=== PATIENT | female | born 1960 | race Caucasian/White ===

== ENCOUNTER 2018-07-17 10:39 | Emergency (ER) | payer MEDICAID ==
[2018-07-17 10:54] VITALS: TEMP 97.9
[2018-07-17] MEDS ORDERED: Iohexol 240 (50 ml) PO STA (11:32)
--- NOTE | 2018-07-17 11:37 | C.PDOC ---
History Of Present Illness 58 y/o obese female with sleep apnea, dm, htn comes to ed from pmd office with diffuse abdominal pain and persistent diarrhea for long time, since she was in [place]. no prior gi workup or colonoscopy. pt finished course of iv antibiotics (names unknown) about [address] Crawley. Recent abdominal us shows fatty liver per relative. no fever or chills. pt reports diarrhea goes away only with immodium. pt on metformin for dm. Time Seen by Provider: 07/17/18 11:10 Chief Complaint (Nursing): Abdominal Pain History Per: Patient, Family History/Exam Limitations: no limitations Onset/Duration Of Symptoms: Days, Intermittent Episodes Current Symptoms Are (Timing): Still Present Location Of Pain/Discomfort: Diffuse Radiation Of Pain To:: None Quality Of Discomfort: Unable To Describe Associated Symptoms: Nausea, Diarrhea. denies: Fever, Chills, Vomiting, Urinary Symptoms Exacerbating Factors: None Alleviating Factors: OTC Meds (immodium) Last Bowel Movement: Today Past Medical History Reviewed: Historical Data, Nursing Documentation, Vital Signs Vital Signs: Last Vital Signs Temp 97.9 F 07/17/18 10:51 Pulse 72 07/17/18 10:51 Resp 18 07/17/18 10:51 BP 152/89 H 07/17/18 10:51 Pulse Ox 100 07/17/18 10:51 - Medical History PMH: Arthritis, Diabetes, HTN, Migraine, Sleep Apnea Family History: States: Unknown Family Hx - Social History Hx Tobacco Use: No Hx Alcohol Use: No Hx Substance Use: No Review Of Systems Constitutional: Negative for: Fever, Chills ENT: Negative for: Mouth Pain, Throat Pain Cardiovascular: Negative for: Chest Pain Respiratory: Negative for: Cough Gastrointestinal: Positive for: Nausea, Abdominal Pain, Diarrhea. Negative for: Vomiting, Constipation Genitourinary: Negative for: Dysuria Skin: Negative for: Rash Neurological: Negative for: Weakness, Numbness Physical Exam - Physical Exam Appears: Non-toxic, No Acute Distress, Other (obese) Skin: Warm, Dry Head: Atraumatic, Normacephalic Oral Mucosa: Moist Neck: Supple Cardiovascular: Rhythm Regular Respiratory: No Decreased Breath Sounds, No Rales, No Rhonchi Gastrointestinal/Abdominal: Bowel Sounds, Soft, Tenderness (diffuse), No Distention, No Guarding, No Rebound Back: No CVA Tenderness Extremity: Normal ROM, No Pedal Edema Pulses: Left Dorsalis Pedis: Normal, Right Dorsalis Pedis: Normal Neurological/Psych: Oriented x3, Normal Speech, Normal Cognition ED Course And Treatment - Laboratory Results Result Diagrams: 07/17/18 11:52 07/17/18 11:52 O2 Sat by Pulse Oximetry: 100 Medical Decision Making Medical Decision Makin58 y/o obese female with diffuse ab pain, mostly epigastric and suprapubic, with diarrhea. sent for ab ct from pmd, labs and ct ordered. pepcid ordered. 1620 ct resulted, bladder wall thickening. no other acute findings. d/c with Macrobid. message left for Dr Crawley with lab and ct results. D.c home. Disposition Counseled Patient/Family Regarding: Studies Performed, Diagnosis, Need For Followup, Rx Given - Disposition Referrals: Narciso Crawley DO [Staff Provider] - Tone Howe MD [Staff Provider] - Disposition: HOME/ ROUTINE Disposition Time: 16:23 Condition: GOOD Additional Instructions: Please take antibiotics until completed. Drink increased fluids. Follow up with Dr Crawley and also with Dr Howe (gastroenterology). Tylenol or MOtrin for pain. Return to ER for any worse symptoms. Prescriptions: Nitrofurantoin Macrocrystals [Macrobid] 100 mg PO BID #14 cap Instructions: Acute Cystitis (DC) Forms: [facility] (Tristanian), General Discharge Instructions - Clinical Impression Clinical Impression: Cystitis
[2018-07-17] MEDS ORDERED: Iohexol 240 (50 ml) ONE (11:44)
[2018-07-17 12:05] LABS: BASO % 0.6 % (0.0-2.0); EOS # 0.4 K/uL (0.0-0.7); EOS % 4.4 % (0.0-4.0); HEMOGLOBIN 9.1 g/dL (11.0-16.0); LYMPH # 3.1 K/uL (1.0-4.3); LYMPH % 35.7 % (20.0-40.0); MEAN CELL VOLUME 68.4 fL (81.0-99.0); MEAN CORPUSCULAR HEMOGLOBIN 21.2 pg (27.0-31.0); MEAN CORPUSCULAR HGB CONC 30.9 g/dL (33.0-37.0); MEAN PLATELET VOLUME 8.3 fL (7.2-11.7); MONO # 0.7 K/uL (0.0-0.8); MONO % 7.9 % (0.0-10.0); NEUT # 4.5 K/uL (1.8-7.0); NEUT % 51.4 % (50.0-75.0); RBC 4.28 Mil/uL (3.80-5.20); SQUAMOUS EPITHIAL < 1 /hpf (0-5); URINE BACTERIA RARE (<OCC); URINE BILIRUBIN NEGATIVE (NEGATIVE); URINE BLOOD 1+ (NEGATIVE); URINE CLARITY Clear (Clear); URINE COLOR Straw (YELLOW); URINE GLUCOSE (UA) NORMAL (Normal); URINE LEUKOCYTE ESTERASE 3+ Leu/uL (Negative); URINE PROTEIN NEGATIVE (NEGATIVE); URINE UROBILINOGEN NORMAL mg/dL (0.2-1.0); WHITE BLOOD COUNT 8.7 K/uL (4.8-10.8)
[2018-07-17 12:19] LABS: ALB/GLOB RATIO 1.2 (1.0-2.1); ALBUMIN 3.8 g/dL (3.5-5.0); ALT/SGPT 18 U/L (9-52); AST/SGOT 18 U/L (14-36); BLOOD UREA NITROGEN 9 mg/dL (7-17); CALCIUM 8.7 mg/dl (8.6-10.4); GFR NON-AFRICAN AMERICAN > 60; LIPASE 80 U/L (23-300)
[2018-07-17] MEDS ORDERED: Iodixanol 320 MG/ML 100 ML BOTTLE IV ONE (13:33)
--- NOTE | 2018-07-17 16:13 | CT ---
Date of service: 07/17/2018 PROCEDURE: CT Abdomen and Pelvis.. HISTORY: Abdominal pain COMPARISON: None. TECHNIQUE: Contiguous axial images of the abdomen and pelvis performed following oral and intravenous injection of approximately 100 cc Omnipaque Visipaque 320 contrast material. The reformats generated. Radiation dose: Total exam DLP = 1202.24 mGy-cm. This CT exam was performed using one or more of the following dose reduction techniques: Automated exposure control, adjustment of the mA and/or kV according to patient size, and/or use of iterative reconstruction technique. FINDINGS: LOWER THORAX: Heart size upper limits of normal. No significant pericardial effusion. There is a small blebs seen left medial lung base. Minor passive/dependent type atelectasis both posterior lower lung wallace. LIVER: Liver is upper limits of normal in size measuring nearly 19 cm in CC dimension. No obvious hepatic mass or collection. Portal and splenic veins are opacified. No gross intrahepatic biliary ductal dilatation GALLBLADDER AND BILE DUCTS: Gallbladder physiologically distended. No evidence of intraluminal urinary gallbladder calculi.. PANCREAS: Pancreas slightly atrophic and fatty replaced. No pancreatic mass collection or calcification. SPLEEN: The spleen exhibits normal size and attenuation pattern. ADRENALS: The no adrenal lesions. KIDNEYS AND URETERS: Left kidney is atrophic the however on does exhibit a nephrographic phase. There are a few small low-attenuation foci seen in the upper pole, and midpole of the left kidney likely representing cysts despite Hounsfield units in the mid ranging from mid 20s to low 30. No evidence of nephrolithiasis or hydronephrosis. BLADDER: Urinary bladder incompletely distended which in presumably in part accounts for thick-walled appearance however correlation with urinalysis recommended to exclude cystitis. REPRODUCTIVE: Uterus unremarkable. APPENDIX: Normal-appearing appendix BOWEL: Evaluation of the bowel is slightly limited due to incomplete opacification. The stomach is incompletely distended. Visualized loops of small bowel exhibit normal contour and caliber. No evidence of acute mechanical small bowel obstruction with oral contrast material extending into the colon to the level of the mid to lower descending colon region. No definitive abnormal mural wall thickening. Liver is upper limits PERITONEUM: Unremarkable. No fluid collection. No free air. LYMPH NODES: Unremarkable. No enlarged lymph nodes. VASCULATURE: Unremarkable. No aortic aneurysm. No aortic atherosclerotic calcification or mural plaque present. BONES: Mild multilevel degenerative spondylosis of the lower thoracic and lumbar spine. OTHER FINDINGS: .There is a small sclerotic lesion in the left greater trochanter likely representing bone island or osteoma. IMPRESSION: Mild wall thickening of the urinary bladder in part due to incomplete distention however correlation with urinalysis recommended to exclude cystitis. Atrophic left kidney. Several on low-attenuation foci right kidney likely representing cysts as above.
[2018-07-17 16:56] VITALS: BP 113/73; PULSE 71; RESP 18
[2018-07-17 18:40] VITALS: O2SAT 100
== END 2018-07-17 16:56 | disposition home or self-care (01) ==
LOC: C.ER 10:39
DX: N30.90 Cystitis, unspecified without hematuria (principal); E11.9 Type 2 diabetes mellitus without complications; I10 Essential (primary) hypertension; G47.30 Sleep apnea, unspecified
CPT/HCPCS: 74177; 80053; 81001; 83690; 85025; 87086; 87181; 96374; 96375; 99285; J2405; Q9966; Q9967